=== PATIENT | female | born 1965 | race Caucasian/White ===

== ENCOUNTER → 2019-03-23 | Outpatient (CLI) | payer OTHER ==
[~2019-03-23] MED LIST: FENOFIBRATE43 MG; Lisinopril2.5 MG
== END | disposition home or self-care (01) ==
LOC: LAB 09:46 → LAB SHORT 09:46
DX: Z01.419 Encounter for gynecological examination (general) (routine) without abnormal findings (principal)
CPT/HCPCS: 87624; G0145

== ENCOUNTER 2019-11-16 07:52 | Day surgery (SDC) | payer OTHER ==
[~2019-11-16] VITALS: Ht 172.7 cm; Wt 108.9 kg
[2019-11-16] MEDS ORDERED: METOPROLOL ER-1 EAC1 (08:21)
[2019-11-16] MEDS ORDERED: METOPROLOL SUCC25 MG (08:21)
== END 2019-11-16 09:54 | disposition home or self-care (01) ==
LOC: ORSCSDS 07:52
PROVIDERS: Internal Medicine Gastroenterology
PROC: 0DBM8ZX Excision of Descending Colon, Via Natural or Artificial Opening Endoscopic, Diagnostic (ICD-10-PCS; principal; 2019-11-16 09:00)
PROC: 0DBP8ZX Excision of Rectum, Via Natural or Artificial Opening Endoscopic, Diagnostic (ICD-10-PCS; principal; 2019-11-16 09:00)
PROC: 0DBH8ZX Excision of Cecum, Via Natural or Artificial Opening Endoscopic, Diagnostic (ICD-10-PCS; principal; 2019-11-16 09:00)
DX: Z12.11 Encounter for screening for malignant neoplasm of colon (principal); Z86.010 Personal history of colon polyps; D12.0 Benign neoplasm of cecum; D12.4 Benign neoplasm of descending colon; K62.1 Rectal polyp; K64.8 Other hemorrhoids; K57.30 Diverticulosis of large intestine without perforation or abscess without bleeding; I10 Essential (primary) hypertension; F41.9 Anxiety disorder, unspecified; E78.5 Hyperlipidemia, unspecified; E66.9 Obesity, unspecified; Z68.37 Body mass index [BMI] 37.0-37.9, adult; Z79.899 Other long term (current) drug therapy
CPT/HCPCS: 88305; J0330; J0461; J2405; J2704; J7120